=== PATIENT | male | born 1960 | race Hispanic/Latino ===

== ENCOUNTER 2021-09-24 16:23 | Inpatient (IN) | payer OTHER ==
[~2021-09-24 16:23] MED LIST: Iopamidol 300 61% 100 ML VIAL FS ONE
[2021-09-24] MEDS ORDERED: Ibuprofen 200 MG TAB ONE (17:26)
[2021-09-24 17:38] LABS: Hemoglobin 10.6 g/dL (13.5-17.5); Mean Corpuscular Hemoglobin 23.1 pg (27.0-33.0); Mean Corpuscular Volume 79.5 fl (81.2-95.1); Mean Platelet Volume 9.6 fl (7.4-10.4); Platelet Count 66 10x3/uL (150-450); RBC Distribution Width 20.9 % (11.5-14.5); Red Blood Cell (RBC) Count 4.59 10x6/uL (4.32-5.72); White Blood Cell (WBC) Count 21.4 10x3/uL (3.5-10.5)
[2021-09-24] MEDS ORDERED: cefTRIAXone\\ROCEPHIN 1 GM VIAL ONE (17:49)
[2021-09-24 17:57] LABS: ALT (SGPT) 19 U/L (8-55); AST (SGOT) 54 U/L (5-34); Albumin 2.3 g/dL (3.4-4.8); Alkaline Phosphatase 66 U/L (40-110); Anion Gap 17 mmol/L (10-20); BUN (Urea Nitrogen) 24 mg/dL (8.4-25.7); Bilirubin, Total 2.4 mg/dL (0.2-1.2); Calc. Creatinine Clearance 0 mL/min (70-130); Calcium 8.1 mg/dL (7.8-10.44); Carbon Dioxide 17 mmol/L (23-31); Chloride 106 mmol/L (98-107); Globulin 3.3 g/dL (2.4-3.5); Glucose 72 mg/dL (80-115); Lipase 15 U/L (8-78); Magnesium 1.4 mg/dL (1.6-2.6); Potassium 3.8 mmol/L (3.5-5.1); Protein, Total 5.6 g/dL (5.8-8.1); Sodium 136 mmol/L (136-145)
[2021-09-24 18:15] LABS: Bilirubin Neg (Negative); Blood, Urine 150 (Negative); Clarity Cloudy (Clear); Glucose, Urine (Dipstick) Normal (Negative); Ketone, Urine Negative (Negative); Leukocyte 500 (Negative); Nitrite Negative (Negative); Protein, Urine (Dipstick) 30 mg/dl (Neg-Trace); Urobilinogen Normal mg/dL (Less than 2)
[2021-09-24 18:19] LABS: CKMB 6.4 ng/mL (0-6.6)
[2021-09-24 18:21] LABS: Band 7 % (5-11); Lymphocytes 2 % (21-51); Monocytes 4 % (0-10); Neutrophil 87 % (42-75)
[2021-09-24 18:24] LABS: Anisocytosis MODERATE=16-30 cells (100X) (0-5/hpf); MDiff Complete? YES; Poikilocytosis SLIGHT = 6-15 cells (100X) (0-5/hpf)
[2021-09-24 18:25] LABS: Microcytosis SLIGHT = 6-15 cells (100X) (0-5/hpf)
[2021-09-24 18:27] LABS: Ovalocytes SLIGHT = 2-5 cells (100X) (0-1/hpf); Platelet Morphology Comment Appears Decreased
[2021-09-24 18:28] LABS: Giant Platelets SLIGHT
[2021-09-24 18:33] LABS: Bacteria/HPF 3+ HPF (None Seen); Squamous Epithelial 0-3 HPF (0-3); WBC/HPF Greater Than 50 HPF (0-3)
[2021-09-24 18:41] LABS: SARS-CoV-2 NAA Rapid Test Not Detected (NotDetected)
[2021-09-24] MEDS ORDERED: Vancomycin 1.5 GRAM/300 ML BAG 1.5 GM in Premix Bag 1 BAG IVPB SCH (19:00)
[2021-09-24] MEDS ORDERED: Midazolam HCl 2 mg/2 ml Vial ONE (19:11)
[2021-09-24] MEDS ORDERED: Norepinephrine 8 MG/0.9% NS 250 ML ONE (19:17)
[2021-09-24] MEDS ORDERED: Acetaminophen 325 MG TAB PO PRN (20:34)
[2021-09-24] MEDS ORDERED: Magnesium 2 GM/50 ML(in water) 2 GM in Premix Bag 1 BAG IVPB SCH (22:00)
[2021-09-24] MEDS ORDERED: Rifaximin 550 MG TAB PO SCH (22:00)
[2021-09-24] MEDS ORDERED: Norepinephrine 8 MG/0.9% NS 250 ML IVPB SCH (22:00)
[2021-09-24] MEDS ORDERED: levETIRAcetam 500 MG TAB PO SCH (22:00)
[2021-09-24 22:13] VITALS: BMI 35.3
[2021-09-24 22:28] LABS: INR-International Normal Ratio 1.9; PTT 40.7 sec (22.0-33.0); Prothrombin Time 19.7 sec (9.5-12.1)
[2021-09-24] MEDS: Thiamine HCl 200 MG/2 ML VIAL SLOW IVP SCH (22:40)
[2021-09-24] MEDS: Lactated Ringer's 1,000 ML IV SCH (22:42)
[2021-09-25] MEDS: Cefepime 2 GM in Sodium Chloride 0.9% 100 ML IVPB SCH ×2 (00:31→22:25)
[2021-09-25 04:34] LABS: Hemoglobin 10.7 g/dL (13.5-17.5); MDiff Complete? YES; Manual Diff?? YES; Mean Corpuscular HGB CONC 30.8 g/dL (32.0-36.0); Mean Corpuscular Hemoglobin 23.4 pg (27.0-33.0); Mean Corpuscular Volume 75.8 fl (81.2-95.1); Platelet Count 108 10x3/uL (150-450); RBC Distribution Width 21.4 % (11.5-14.5); Red Blood Cell (RBC) Count 4.58 10x6/uL (4.32-5.72); White Blood Cell (WBC) Count 25.4 10x3/uL (3.5-10.5)
[2021-09-25 04:54] LABS: Anion Gap 14 mmol/L (10-20); BUN (Urea Nitrogen) 29 mg/dL (8.4-25.7); Calc. Creatinine Clearance 54 mL/min (70-130); Calcium 7.1 mg/dL (7.8-10.44); Carbon Dioxide 19 mmol/L (23-31); Chloride 109 mmol/L (98-107); Glucose 127 mg/dL (80-115); Potassium 3.6 mmol/L (3.5-5.1); Sodium 138 mmol/L (136-145); Troponin I 0.043 ng/mL (< 0.028)
[2021-09-25 05:12] LABS: Band 39 % (5-11); Lymphocytes 1 % (21-51); Metamyelocyte 4 % (0-0); Monocytes 2 % (0-10); Neutrophil 52 % (42-75); Reactive Lymphocytes 2 % (0-10)
[2021-09-25 05:15] LABS: Anisocytosis SLIGHT = 6-15 cells (100X) (0-5/hpf); Dohle Bodies SLIGHT; Elliptocytes SLIGHT = 2-5 cells (100X) (0-1/hpf); Hypochromia SLIGHT = 6-15 cells (100X) (0-5/hpf); Macrocytosis SLIGHT = 6-15 cells (100X) (0-5/hpf); Microcytosis SLIGHT = 6-15 cells (100X) (0-5/hpf); Platelet Morphology Comment Appears Decreased; Polychromasia SLIGHT = 2-3 cells (100X) (0-2/hpf); Toxic Granulation SLIGHT; Vacuoles SLIGHT
[2021-09-25] MEDS ORDERED: Potassium Chloride 20 MEQ TAB PO SCH (05:15)
[2021-09-25] MEDS: Lactated Ringer's 1,000 ML IV SCH (06:49)
[2021-09-25] MEDS: Dextrose 5%-Lactated Ringers 1,000 ML IV SCH ×2 (06:50→15:27)
[2021-09-25] MEDS ORDERED: Potassium Bicarbonate/Cit Ac 20 MEQ TAB PO SCH (08:45)
[2021-09-25] MEDS: Pantoprazole 40 MG VIAL IVP SCH (09:22)
[2021-09-25] MEDS: levETIRAcetam 500 MG TAB PO SCH ×2 (09:22→20:23)
[2021-09-25] MEDS: Rifaximin 550 MG TAB PO SCH ×2 (09:22→20:23)
[2021-09-25 11:41] LABS: Lactic Acid 3.9 mmol/L (0.5-2.2)
[2021-09-25 11:42] LABS: Troponin I 0.049 ng/mL (< 0.028)
[2021-09-25] MEDS: VANCOMYCIN 1.25 GM/250 ML BAG 1.25 GM in Premix Bag 1 BAG IVPB SCH (18:44)
[2021-09-25] MEDS: Thiamine HCl 200 MG/2 ML VIAL SLOW IVP SCH (20:25)
[2021-09-26 03:23] LABS: #Eosinphils 0.2 10x3/uL (0.0-0.5); #Monocytes 0.5 10x3/uL (0.0-1.1); #Neutrophils 9.3 10x3/uL (1.5-8.4); %Basophils 0.3 % (0.0-2.0); %Eosinophils 1.5 % (0.0-6.0); %Lymphocytes 15.3 % (18.0-47.0); %Monocytes 3.8 % (0.0-10.0); %Neutrophils 77.5 % (40.0-75.0); Hemoglobin 9.7 g/dL (13.5-17.5); Mean Corpuscular HGB CONC 31.2 g/dL (32.0-36.0); Mean Corpuscular Hemoglobin 23.5 pg (27.0-33.0); Mean Corpuscular Volume 75.3 fl (81.2-95.1); Platelet Count 79 10x3/uL (150-450); RBC Distribution Width 20.9 % (11.5-14.5); Red Blood Cell (RBC) Count 4.13 10x6/uL (4.32-5.72)
[2021-09-26 04:08] LABS: Band 29 % (5-11); Eosinophils 1 % (0-10); Lymphocytes 14 % (21-51); Monocytes 3 % (0-10); Neutrophil 50 % (42-75); Reactive Lymphocytes 3 % (0-10)
[2021-09-26 04:09] LABS: Anisocytosis SLIGHT = 6-15 cells (100X) (0-5/hpf); Platelet Morphology Comment Appears Decreased
[2021-09-26 04:10] LABS: Hypochromia SLIGHT = 6-15 cells (100X) (0-5/hpf); Macrocytosis SLIGHT = 6-15 cells (100X) (0-5/hpf); Microcytosis SLIGHT = 6-15 cells (100X) (0-5/hpf)
[2021-09-26 04:11] LABS: Elliptocytes SLIGHT = 2-5 cells (100X) (0-1/hpf); Tear Drops SLIGHT = 2-5 cells (100X) (0-1/hpf)
[2021-09-26 04:36] LABS: Anion Gap 10 mmol/L (10-20); BUN (Urea Nitrogen) 25 mg/dL (8.4-25.7); Calc. Creatinine Clearance 64 mL/min (70-130); Calcium 7.1 mg/dL (7.8-10.44); Carbon Dioxide 20 mmol/L (23-31); Chloride 115 mmol/L (98-107); Glucose 97 mg/dL (80-115); Magnesium 1.9 mg/dL (1.6-2.6); Potassium 4.3 mmol/L (3.5-5.1); Sodium 141 mmol/L (136-145)
[2021-09-26 04:43] LABS: Troponin I 0.015 ng/mL (< 0.028)
[2021-09-26 04:56] LABS: Manual Diff?? YES
[2021-09-26] MEDS ORDERED: Dextrose 5%-Lactated Ringers 1,000 ML IV SCH ×2 (08:02→08:37)
[2021-09-26] MEDS: Rifaximin 550 MG TAB PO SCH ×2 (08:43→22:13)
[2021-09-26] MEDS: levETIRAcetam 500 MG TAB PO SCH ×2 (08:43→22:13)
[2021-09-26] MEDS: Pantoprazole 40 MG VIAL IVP SCH (08:44)
[2021-09-26] MEDS ORDERED: HYDROcodone/Acetaminophen 5/325 mg Tablet PO PRN (08:44)
[2021-09-26] MEDS ORDERED: Acetaminophen 325 MG TAB PO PRN (08:44)
[2021-09-26] MEDS: Lidocaine 5% Patch TD SCH (09:00)
[2021-09-26] MEDS: Dextrose 5%-Lactated Ringers 1,000 ML IV SCH ×2 (10:00→10:19)
[2021-09-26] MEDS: Cefepime 2 GM in Sodium Chloride 0.9% 100 ML IVPB SCH ×2 (11:55→23:34)
[2021-09-26] MEDS: VANCOMYCIN 1.25 GM/250 ML BAG 1.25 GM in Premix Bag 1 BAG IVPB SCH (17:01)
[2021-09-26 17:09] LABS: Vancomycin, Trough 8.9 ug/mL
[2021-09-26] MEDS ORDERED: Vancomycin HCl 500 MG in Sodium Chloride 0.9% 100 ML IVPB SCH (20:00)
[2021-09-26] MEDS: Transdermal Patch Removal TOP SCH (22:14)
[2021-09-26] MEDS: Thiamine HCl 200 MG/2 ML VIAL SLOW IVP SCH (22:14)
[2021-09-27 05:33] LABS: Hemoglobin 9.4 g/dL (13.5-17.5); Mean Corpuscular HGB CONC 30.9 g/dL (32.0-36.0); Mean Corpuscular Hemoglobin 23.5 pg (27.0-33.0); Platelet Count 76 10x3/uL (150-450); RBC Distribution Width 21.1 % (11.5-14.5); White Blood Cell (WBC) Count 7.9 10x3/uL (3.5-10.5)
[2021-09-27 05:34] LABS: MDiff Complete? YES; Manual Diff?? YES
[2021-09-27 05:39] LABS: Anion Gap 11 mmol/L (10-20); BUN (Urea Nitrogen) 18 mg/dL (8.4-25.7); Calc. Creatinine Clearance 83 mL/min (70-130); Calcium 7.4 mg/dL (7.8-10.44); Carbon Dioxide 24 mmol/L (23-31); Chloride 115 mmol/L (98-107); Glucose 79 mg/dL (80-115); Potassium 4.1 mmol/L (3.5-5.1); Sodium 146 mmol/L (136-145)
[2021-09-27 06:01] LABS: Band 14 % (5-11); Eosinophils 3 % (0-10); Lymphocytes 15 % (21-51); Monocytes 4 % (0-10); Neutrophil 63 % (42-75)
[2021-09-27 06:02] LABS: Platelet Morphology Comment Appears Decreased
[2021-09-27 06:03] LABS: Anisocytosis SLIGHT = 6-15 cells (100X) (0-5/hpf); Dohle Bodies SLIGHT; Elliptocytes SLIGHT = 2-5 cells (100X) (0-1/hpf); Hypochromia SLIGHT = 6-15 cells (100X) (0-5/hpf); Macrocytosis SLIGHT = 6-15 cells (100X) (0-5/hpf); Microcytosis SLIGHT = 6-15 cells (100X) (0-5/hpf); Polychromasia SLIGHT = 2-3 cells (100X) (0-2/hpf); Target Cells SLIGHT = 2-5 cells (100X) (0-1/hpf); Toxic Granulation SLIGHT; Vacuoles SLIGHT
[2021-09-27] MEDS: levETIRAcetam 500 MG TAB PO SCH ×2 (09:04→22:58)
[2021-09-27] MEDS: Lidocaine 5% Patch TD SCH (09:04)
[2021-09-27] MEDS: Rifaximin 550 MG TAB PO SCH ×2 (09:04→22:58)
[2021-09-27] MEDS: Cefepime 2 GM in Sodium Chloride 0.9% 100 ML IVPB SCH ×2 (11:42→23:01)
[2021-09-27] MEDS ORDERED: Bumetanide 1 MG/4 ML VIAL IVP SCH (12:15)
[2021-09-27] MEDS ORDERED: Bumetanide 1 MG TAB PO SCH (13:00)
[2021-09-27] MEDS ORDERED: VANCOMYCIN 1.75 GM/350 ML BAG 1.75 GM in Premix Bag 1 BAG IVPB SCH (18:00)
[2021-09-27] MEDS: Thiamine HCl 200 MG/2 ML VIAL SLOW IVP SCH (22:56)
[2021-09-27] MEDS: Transdermal Patch Removal TOP SCH (22:58)
[2021-09-28 05:07] LABS: Anion Gap 8 mmol/L (10-20); BUN (Urea Nitrogen) 18 mg/dL (8.4-25.7); Calc. Creatinine Clearance 79 mL/min (70-130); Calcium 7.9 mg/dL (7.8-10.44); Carbon Dioxide 29 mmol/L (23-31); Chloride 111 mmol/L (98-107); Glucose 82 mg/dL (80-115); Potassium 3.8 mmol/L (3.5-5.1); Sodium 144 mmol/L (136-145)
[2021-09-28] MEDS: Lidocaine 5% Patch TD SCH (08:00)
[2021-09-28] MEDS: Rifaximin 550 MG TAB PO SCH (08:00)
[2021-09-28] MEDS: levETIRAcetam 500 MG TAB PO SCH (08:00)
[2021-09-28] MEDS ORDERED: Bumetanide 1 MG TAB PO SCH (09:00)
[2021-09-28] MEDS: Cefepime 2 GM in Sodium Chloride 0.9% 100 ML IVPB SCH (11:35)
[2021-09-28 16:23] VITALS: BP 128/58; TEMP 98.1
== END 2021-09-28 17:35 | DRG 871 ==
LOC: CSHERS 16:23 → CSHIMCU 21:15 → EEVIPCON 21:15 → CSHICU 09-25 09:11 → CSHTELE 09-26 14:54
PROVIDERS: ADMIT Family Medicine; ATTEND Family Medicine
PROC: 3E033XZ Introduction of Vasopressor into Peripheral Vein, Percutaneous Approach (ICD-10-PCS; principal; 2021-09-24)
PROC: 3E03329 Introduction of Other Anti-infective into Peripheral Vein, Percutaneous Approach (ICD-10-PCS; 2021-09-24)
DX: A41.51 Sepsis due to Escherichia coli [E. coli] (principal); R65.21 Severe sepsis with septic shock; J18.9 Pneumonia, unspecified organism; G93.41 Metabolic encephalopathy; N39.0 Urinary tract infection, site not specified; E87.2 Acidosis; N17.9 Acute kidney failure, unspecified; K74.60 Unspecified cirrhosis of liver; G40.909 Epilepsy, unspecified, not intractable, without status epilepticus; B19.20 Unspecified viral hepatitis C without hepatic coma; E83.42 Hypomagnesemia; D69.6 Thrombocytopenia, unspecified; N18.32 Chronic kidney disease, stage 3b; Z20.822 Contact with and (suspected) exposure to COVID-19; R01.1 Cardiac murmur, unspecified; E88.09 Other disorders of plasma-protein metabolism, not elsewhere classified; E66.9 Obesity, unspecified; E83.52 Hypercalcemia; R91.8 Other nonspecific abnormal finding of lung field; D63.1 Anemia in chronic kidney disease; Z68.35 Body mass index [BMI] 35.0-35.9, adult; I69.320 Aphasia following cerebral infarction
CPT/HCPCS: 36415; 36416; 36556; 71045; 74177; 80048; 80053; 80202; 81003; 81015; 82140; 82533; 82553; 83605; 83690; 83735; 84484; 85025; 85610; 85730; 87040; 87077; 87086; 87186; 93005; 93306; 94760; 96365; 96374; 96375; C9113; J0692; J0696; J1956; J2250; J3370; J3411; J3475; J3490; J7120; Q9967

== ENCOUNTER 2021-10-22 19:52 | Emergency (ER) | payer OTHER ==
[2021-10-22] MEDS ORDERED: methylPREDNISolone Sod Succ/PF 125 MG/2 ML VIAL ONE (20:14)
[2021-10-22 20:45] LABS: #Eosinphils 0.3 10x3/uL (0.0-0.5); #Monocytes 1.1 10x3/uL (0.0-1.1); #Neutrophils 5.6 10x3/uL (1.5-8.4); %Basophils 0.5 % (0.0-2.0); %Eosinophils 3.7 % (0.0-6.0); %Lymphocytes 18.1 % (18.0-47.0); %Monocytes 13.1 % (0.0-10.0); %Neutrophils 64.3 % (40.0-75.0); Hemoglobin 11.4 g/dL (13.5-17.5); Mean Corpuscular HGB CONC 29.8 g/dL (32.0-36.0); Mean Corpuscular Hemoglobin 23.9 pg (27.0-33.0); Mean Corpuscular Volume 80.3 fl (81.2-95.1); Platelet Count 126 10x3/uL (150-450); RBC Distribution Width 23.2 % (11.5-14.5); Red Blood Cell (RBC) Count 4.77 10x6/uL (4.32-5.72); White Blood Cell (WBC) Count 8.7 10x3/uL (3.5-10.5)
[2021-10-22 20:47] LABS: ALT (SGPT) 22 U/L (8-55); AST (SGOT) 33 U/L (5-34); Albumin 2.4 g/dL (3.4-4.8); Alkaline Phosphatase 113 U/L (40-110); Anion Gap 10 mmol/L (10-20); BUN (Urea Nitrogen) 14 mg/dL (8.4-25.7); Bilirubin, Total 1.4 mg/dL (0.2-1.2); Calc. Creatinine Clearance 0 mL/min (70-130); Calcium 7.7 mg/dL (7.8-10.44); Carbon Dioxide 26 mmol/L (23-31); Chloride 110 mmol/L (98-107); Globulin 3.3 g/dL (2.4-3.5); Glucose 105 mg/dL (80-115); Protein, Total 5.7 g/dL (5.8-8.1); Sodium 142 mmol/L (136-145)
[2021-10-22 21:01] LABS: Platelet Morphology Comment Appears Decreased; Polychromasia SLIGHT = 2-3 cells (100X) (0-2/hpf)
[2021-10-22 21:02] LABS: Elliptocytes SLIGHT = 2-5 cells (100X) (0-1/hpf); Target Cells SLIGHT = 2-5 cells (100X) (0-1/hpf)
[2021-10-22 21:28] LABS: SARS-CoV-2 NAA Rapid Test Not Detected (NotDetected)
[2021-10-22] MEDS ORDERED: Furosemide 40 MG/4 ML VIAL ONE (22:00)
[2021-10-22 22:27] LABS: Troponin I Less than 0.010 ng/mL (< 0.028)
== END 2021-10-22 23:15 ==
LOC: CSHERS 19:52 → EEVIPCON 19:52 → CSHERS 23:15
DX: R06.02 Shortness of breath (principal); J44.9 Chronic obstructive pulmonary disease, unspecified; Z20.822 Contact with and (suspected) exposure to COVID-19; Z86.73 Personal history of transient ischemic attack (TIA), and cerebral infarction without residual deficits; Z79.899 Other long term (current) drug therapy
CPT/HCPCS: 36415; 71045; 80053; 83880; 84484; 85025; 93005; 96374; 96375; J1940; J2930; U0002

== ENCOUNTER 2021-11-06 23:26 | Observation (INO) | payer OTHER ==
[2021-11-06 23:57] LABS: #Basophils 0.1 10x3/uL (0.0-0.2); #Eosinphils 0.4 10x3/uL (0.0-0.5); #Monocytes 1.2 10x3/uL (0.0-1.1); #Neutrophils 4.4 10x3/uL (1.5-8.4); %Basophils 0.7 % (0.0-2.0); %Eosinophils 3.9 % (0.0-6.0); %Lymphocytes 34.2 % (18.0-47.0); %Monocytes 12.9 % (0.0-10.0); Hemoglobin 14.2 g/dL (13.5-17.5); Mean Corpuscular HGB CONC 31.5 g/dL (32.0-36.0); Mean Corpuscular Hemoglobin 23.8 pg (27.0-33.0); Mean Corpuscular Volume 75.7 fl (81.2-95.1); RBC Distribution Width 23.1 % (11.5-14.5); Red Blood Cell (RBC) Count 5.96 10x6/uL (4.32-5.72); White Blood Cell (WBC) Count 9.1 10x3/uL (3.5-10.5)
[2021-11-07 00:03] LABS: INR-International Normal Ratio 1.4; PTT 32.2 sec (22.0-33.0); Prothrombin Time 14.8 sec (9.5-12.1)
[2021-11-07 00:15] LABS: ALT (SGPT) 24 U/L (8-55); AST (SGOT) 40 U/L (5-34); Albumin 2.6 g/dL (3.4-4.8); Alkaline Phosphatase 120 U/L (40-110); Anion Gap 14 mmol/L (10-20); BUN (Urea Nitrogen) 27 mg/dL (8.4-25.7); Bilirubin, Total 3.8 mg/dL (0.2-1.2); Calc. Creatinine Clearance 0 mL/min (70-130); Calcium 7.9 mg/dL (7.8-10.44); Carbon Dioxide 32 mmol/L (23-31); Chloride 99 mmol/L (98-107); Estimated GFR 48; Globulin 3.6 g/dL (2.4-3.5); Glucose 82 mg/dL (80-115); Lipase 92 U/L (8-78); Magnesium 1.9 mg/dL (1.6-2.6); Protein, Total 6.2 g/dL (5.8-8.1); Sodium 143 mmol/L (136-145)
[2021-11-07 00:24] LABS: Potassium 2.4 mmol/L (3.5-5.1)
[2021-11-07 00:25] LABS: Platelet Count 141 10x3/uL (150-450)
[2021-11-07 00:38] LABS: SARS-CoV-2 NAA Rapid Test Not Detected (NotDetected)
[2021-11-07 00:40] LABS: Platelet Morphology Comment Appears Adequate
[2021-11-07 00:42] LABS: Anisocytosis SLIGHT = 6-15 cells (100X) (0-5/hpf); Elliptocytes SLIGHT = 2-5 cells (100X) (0-1/hpf); Macrocytosis SLIGHT = 6-15 cells (100X) (0-5/hpf); Microcytosis SLIGHT = 6-15 cells (100X) (0-5/hpf)
[2021-11-07] MEDS ORDERED: Potassium Chloride 20 MEQ TAB ONE (01:07)
[2021-11-07] MEDS ORDERED: Potassium Chloride 20 MEQ/100 ML PREMIX BAG ONE (01:07)
[2021-11-07] MEDS ORDERED: Acetaminophen 325 MG TAB PO PRN (01:34)
[2021-11-07] MEDS ORDERED: Guaifenesin DM 100-10/5 ML UDCUP PO PRN (01:34)
[2021-11-07] MEDS ORDERED: Ondansetron PF 4 MG/2 ML Vial IVP PRN (01:34)
[2021-11-07] MEDS ORDERED: Calcium Carbonate 500 MG ChewTAB PO PRN (01:34)
[2021-11-07] MEDS ORDERED: Senokot S 8.6-50 MG TAB PO PRN (01:34)
[2021-11-07 02:28] VITALS: BMI 30.2
[2021-11-07] MEDS ORDERED: traMADol HCl 50 MG TAB PO SCH (02:30)
[2021-11-07] MEDS ORDERED: Sodium Chloride 0.45% 250 ML IV SCH (03:00)
[2021-11-07 03:30] LABS: Bilirubin Neg (Negative); Blood, Urine 150 (Negative); Clarity Cloudy (Clear); Glucose, Urine (Dipstick) Normal (Negative); Ketone, Urine Negative (Negative); Leukocyte 500 (Negative); Nitrite Negative (Negative); Protein, Urine (Dipstick) 15 mg/dl (Neg-Trace); Urobilinogen Normal mg/dL (Less than 2)
[2021-11-07 03:36] LABS: WBC/HPF Greater Than 50 HPF (0-3)
[2021-11-07 03:37] LABS: Bacteria/HPF 3+ HPF (None Seen); Squamous Epithelial 0-3 HPF (0-3)
[2021-11-07] MEDS ORDERED: Potassium Chloride 20 MEQ TAB PO SCH ×2 (05:00→17:00)
[2021-11-07] MEDS: Enoxaparin Sodium 40 MG/0.4 ML SYRINGE SC SCH (08:57)
[2021-11-07] MEDS: Albumin 25% 25 GM/100 ML BOT IVPB SCH ×3 (08:57→20:38)
[2021-11-07] MEDS: Thiamine 100 MG TAB PO SCH (08:58)
[2021-11-07] MEDS: levETIRAcetam 500 MG TAB PO SCH ×2 (08:58→20:27)
[2021-11-07] MEDS: Rifaximin 550 MG TAB PO SCH ×2 (08:58→20:27)
[2021-11-07] MEDS: Multivitamin W/ Minerals 1 TAB PO SCH (08:58)
[2021-11-07] MEDS: Folic Acid 1 MG TAB PO SCH (08:59)
[2021-11-07 09:09] LABS: ALT (SGPT) 24 U/L (8-55); AST (SGOT) 38 U/L (5-34); Albumin 2.7 g/dL (3.4-4.8); Alkaline Phosphatase 115 U/L (40-110); Anion Gap 13 mmol/L (10-20); BUN (Urea Nitrogen) 28 mg/dL (8.4-25.7); Bilirubin, Total 4.1 mg/dL (0.2-1.2); Calc. Creatinine Clearance 49 mL/min (70-130); Calcium 8.5 mg/dL (7.8-10.44); Carbon Dioxide 36 mmol/L (23-31); Chloride 98 mmol/L (98-107); Estimated GFR 46; Globulin 3.8 g/dL (2.4-3.5); Glucose 125 mg/dL (80-115); Magnesium 2.1 mg/dL (1.6-2.6); Protein, Total 6.5 g/dL (5.8-8.1); Sodium 144 mmol/L (136-145)
[2021-11-07 09:15] LABS: Potassium 2.7 mmol/L (3.5-5.1)
[2021-11-07] MEDS ORDERED: Potassium Chloride 40 MEQ in Premix Bag 1 BAG IVPB SCH (09:45)
[2021-11-07] MEDS: Potassium Chloride 20 MEQ in Premix Bag 1 BAG IVPB SCH ×2 (09:47→12:05)
[2021-11-07 12:33] LABS: Hemoglobin A1c 4.8 % (4.0-6.0)
[2021-11-07] MEDS ORDERED: Aspirin 81 mg Enteric Coated Tablet PO SCH (20:45)
[2021-11-07] MEDS ORDERED: Atorvastatin Calcium 40 MG TAB PO SCH (21:00)
[2021-11-07 22:13] LABS: Anion Gap 13 mmol/L (10-20); BUN (Urea Nitrogen) 27 mg/dL (8.4-25.7); Calc. Creatinine Clearance 51 mL/min (70-130); Calcium 8.5 mg/dL (7.8-10.44); Carbon Dioxide 31 mmol/L (23-31); Chloride 101 mmol/L (98-107); Estimated GFR 48; Glucose 113 mg/dL (80-115); Potassium 3.3 mmol/L (3.5-5.1); Sodium 142 mmol/L (136-145)
[2021-11-08 05:13] LABS: ALT (SGPT) 17 U/L (8-55); AST (SGOT) 28 U/L (5-34); Albumin 3.1 g/dL (3.4-4.8); Alkaline Phosphatase 98 U/L (40-110); Anion Gap 15 mmol/L (10-20); BUN (Urea Nitrogen) 24 mg/dL (8.4-25.7); Bilirubin, Total 4.6 mg/dL (0.2-1.2); Calc. Creatinine Clearance 63 mL/min (70-130); Calcium 8.4 mg/dL (7.8-10.44); Carbon Dioxide 28 mmol/L (23-31); Cardiac Risk 3.4 (Less than 4.5); Chloride 105 mmol/L (98-107); Cholesterol 113 mg/dl (< 200 Desired); Estimated GFR 63; Glucose 97 mg/dL (80-115); HDL Cholesterol 33 mg/dL (>60 Neg Risk); LDL Cholesterol, Calculated 68 mg/dL; Magnesium 2.2 mg/dL (1.6-2.6); Potassium 3.1 mmol/L (3.5-5.1); Protein, Total 6.1 g/dL (5.8-8.1); Sodium 145 mmol/L (136-145); Triglycerides 59 mg/dL (Less than 150)
[2021-11-08 05:28] LABS: Hemoglobin 12.3 g/dL (13.5-17.5); Mean Corpuscular Hemoglobin 23.4 pg (27.0-33.0); Mean Corpuscular Volume 77.9 fl (81.2-95.1); Mean Platelet Volume 10.5 fl (7.4-10.4); Platelet Count 138 10x3/uL (150-450); RBC Distribution Width 22.6 % (11.5-14.5); Red Blood Cell (RBC) Count 5.26 10x6/uL (4.32-5.72); White Blood Cell (WBC) Count 5.5 10x3/uL (3.5-10.5)
[2021-11-08 05:31] LABS: INR-International Normal Ratio 1.2; PTT 34.6 sec (22.0-33.0)
[2021-11-08 05:41] LABS: #Eosinphils 0.3 10x3/uL (0.0-0.5); #Monocytes 0.7 10x3/uL (0.0-1.1); #Neutrophils 2.6 10x3/uL (1.5-8.4); %Basophils 0.7 % (0.0-2.0); %Eosinophils 6.1 % (0.0-6.0); %Lymphocytes 35.3 % (18.0-47.0); %Neutrophils 45.7 % (40.0-75.0)
[2021-11-08 07:33] LABS: Platelet Morphology Comment Appears Decreased
[2021-11-08 07:34] LABS: Anisocytosis SLIGHT = 6-15 cells (100X) (0-5/hpf); Elliptocytes SLIGHT = 2-5 cells (100X) (0-1/hpf); Hypochromia SLIGHT = 6-15 cells (100X) (0-5/hpf); Macrocytosis SLIGHT = 6-15 cells (100X) (0-5/hpf); Microcytosis SLIGHT = 6-15 cells (100X) (0-5/hpf)
[2021-11-08] MEDS ORDERED: Spironolactone 25 MG TAB PO SCH (08:00)
[2021-11-08] MEDS: levETIRAcetam 500 MG TAB PO SCH (08:30)
[2021-11-08] MEDS: Rifaximin 550 MG TAB PO SCH (08:31)
[2021-11-08] MEDS: Multivitamin W/ Minerals 1 TAB PO SCH (08:32)
[2021-11-08] MEDS: Potassium Chloride 20 MEQ TAB PO SCH ×2 (08:32→18:39)
[2021-11-08] MEDS: Folic Acid 1 MG TAB PO SCH (08:33)
[2021-11-08] MEDS: Albumin 25% 25 GM/100 ML BOT IVPB SCH ×2 (08:33→14:49)
[2021-11-08] MEDS: Enoxaparin Sodium 40 MG/0.4 ML SYRINGE SC SCH (08:33)
[2021-11-08] MEDS: Thiamine 100 MG TAB PO SCH (08:33)
[2021-11-08] MEDS ORDERED: Aspirin 81 mg Enteric Coated Tablet PO SCH (09:00)
[2021-11-08 16:48] VITALS: BP 133/61; TEMP 97.5
== END 2021-11-08 21:30 | disposition home or self-care (01) ==
LOC: CSHERS 23:26 → CSHTELE 11-07 02:12
PROVIDERS: ADMIT Family Medicine; ATTEND Family Medicine
DX: K72.00 Acute and subacute hepatic failure without coma (principal); G93.41 Metabolic encephalopathy; E87.6 Hypokalemia; N17.9 Acute kidney failure, unspecified; I51.89 Other ill-defined heart diseases; K74.60 Unspecified cirrhosis of liver; D69.6 Thrombocytopenia, unspecified; G40.909 Epilepsy, unspecified, not intractable, without status epilepticus; I69.320 Aphasia following cerebral infarction; I69.341 Monoplegia of lower limb following cerebral infarction affecting right dominant side; N18.2 Chronic kidney disease, stage 2 (mild); J90 Pleural effusion, not elsewhere classified; K80.20 Calculus of gallbladder without cholecystitis without obstruction; N13.2 Hydronephrosis with renal and ureteral calculous obstruction; M19.012 Primary osteoarthritis, left shoulder; M24.642 Ankylosis, left hand; M79.602 Pain in left arm; Z79.899 Other long term (current) drug therapy; Z91.012 Allergy to eggs; Z20.822 Contact with and (suspected) exposure to COVID-19
CPT/HCPCS: 36415; 70450; 71045; 71046; 76700; 80053; 80061; 81001; 82140; 83036; 83690; 83735; 84443; 85025; 85610; 85730; 87077; 87086; 87186; 93005; 94760; 96372; 96374; 96375; 96376; G0378; J1650; J2405; J3480; P9047; U0002